=== PATIENT | female | born 1985 | race Hispanic/Latino ===

== ENCOUNTER 2023-11-22 23:40 | Emergency (ER) | payer SELFPAY ==
[2023-11-23 00:29] LABS: Bilirubin Neg (Negative); Blood, Urine 150 (Negative); Clarity Clear (Clear); Glucose, Urine (Dipstick) Normal (Negative); Ketone, Urine Negative (Negative); Leukocyte Negative (Negative); Nitrite Negative (Negative); Protein, Urine (Dipstick) Negative (Neg-Trace); Specific Gravity, Urine 1.015 (1.005-1.030); Urobilinogen Normal mg/dL (Less than 2); pH, Urine 6.5 (5.0-9.0)
[2023-11-23 00:40] LABS: #Basophils 0.04 10x3/uL (0.0-0.2); #Eosinphils 0.34 10x3/uL (0.0-0.5); #Neutrophils 6.66 10x3/uL (1.5-8.4); %Basophils 0.4 % (0.0-2.0); %Eosinophils 3.2 % (0.0-6.0); %Lymphocytes 28.8 % (18.0-47.0); %Monocytes 5.6 % (0.0-10.0); %Neutrophils 61.6 % (40.0-75.0); Hemoglobin 12.3 g/dL (12.0-15.5); Mean Corpuscular HGB CONC 33.2 g/dL (32.0-36.0); Mean Corpuscular Volume 84.3 fL (81.6-98.3); Mean Platelet Volume 9.4 fL (7.4-10.4); Platelet Count 296 10x3/uL (150-450); RBC Distribution Width 13.5 % (11.5-14.5); Red Blood Cell (RBC) Count 4.39 10x6/uL (3.90-5.03); White Blood Cell (WBC) Count 10.8 10x3/uL (3.5-10.5)
[2023-11-23 01:16] LABS: Bacteria/HPF Rare-Few HPF (None Seen); CAUTI Indications for Culture Pregnancy; RBC/HPF 0-3 HPF (0-3); Squamous Epithelial 0-3 HPF (0-3); WBC/HPF 0-3 HPF (0-3)
[2023-11-23 01:17] LABS: Urine Culture Reflex No No; Urine Culture Reflex Yes Yes
== END 2023-11-23 03:13 | disposition home or self-care (01) ==
LOC: CSHERS 23:40
DX: O20.0 Threatened abortion (principal); Z3A.01 Less than 8 weeks gestation of pregnancy
CPT/HCPCS: 36415; 76856; 81001; 84702; 85025; 86850; 86900; 86901; 87086

== ENCOUNTER 2024-02-17 10:12 | Emergency (ER) | payer MEDICAID, SELFPAY ==
[2024-02-17] MEDS ORDERED: Acetaminophen 325 MG TAB ONE (10:41)
[2024-02-17 11:03] LABS: #Basophils 0.02 10x3/uL (0.0-0.2); #Eosinophils 0.12 10x3/uL (0.0-0.5); #Monocytes 0.69 10x3/uL (0.0-1.1); #Neutrophils 5.87 10x3/uL (1.5-8.4); %Basophils 0.2 % (0.0-2.0); %Eosinophils 1.5 % (0.0-6.0); %Lymphocytes 16.3 % (18.0-47.0); %Monocytes 8.5 % (0.0-10.0); %Neutrophils 72.1 % (40.0-75.0); Hemoglobin 10.7 g/dL (12.0-15.5); Mean Corpuscular HGB CONC 32.4 g/dL (32.0-36.0); Mean Corpuscular Hemoglobin 27.1 pg (27.0-33.0); Mean Corpuscular Volume 83.5 fL (81.6-98.3); Mean Platelet Volume 9.9 fL (7.4-10.4); Platelet Count 244 10x3/uL (150-450); RBC Distribution Width 13.6 % (11.5-14.5); Red Blood Cell (RBC) Count 3.95 10x6/uL (3.90-5.03); White Blood Cell (WBC) Count 8.1 10x3/uL (3.5-10.5)
[2024-02-17 11:18] LABS: ALT (SGPT) 17 U/L (8-55); AST (SGOT) 36 U/L (5-34); Albumin 2.6 g/dL (3.5-5.0); Alkaline Phosphatase 105 U/L (40-110); Anion Gap 14 mmol/L (10-20); BUN (Urea Nitrogen) 4 mg/dL (7.0-18.7); Bilirubin, Total 0.2 mg/dL (0.2-1.2); Calc. Creatinine Clearance 0 mL/min (70-130); Calcium 8.3 mg/dL (7.8-10.44); Carbon Dioxide 21 mmol/L (22-29); Chloride 105 mmol/L (98-107); Estimated GFR 118; Globulin 3.9 g/dL (2.4-3.5); Glucose 105 mg/dL (70-105); Potassium 3.4 mmol/L (3.5-5.1); Protein, Total 6.5 g/dL (6.0-8.3); Sodium 137 mmol/L (136-145)
[2024-02-17 12:07] LABS: Bilirubin Neg (Negative); Blood, Urine Negative (Negative); Clarity Clear (Clear); Glucose, Urine (Dipstick) Normal (Negative); Ketone, Urine Negative (Negative); Leukocyte Negative (Negative); Nitrite Negative (Negative); Protein, Urine (Dipstick) 15 mg/dl (Neg-Trace); Specific Gravity, Urine 1.015 (1.005-1.030); Urobilinogen Normal mg/dL (Less than 2)
[2024-02-17 12:41] LABS: Bacteria/HPF 2+ HPF (None Seen); CAUTI Indications for Culture Pregnancy; RBC/HPF None Seen HPF (0-3); Squamous Epithelial Greater than 50 HPF (0-3); WBC/HPF 0-3 HPF (0-3)
[2024-02-17 12:43] LABS: Urine Culture Reflex Yes Yes
== END 2024-02-17 11:07 | disposition home or self-care (01) ==
LOC: CSHERS 10:12
DX: O99.891 Other specified diseases and conditions complicating pregnancy (principal); J11.1 Influenza due to unidentified influenza virus with other respiratory manifestations; Z3A.20 20 weeks gestation of pregnancy
CPT/HCPCS: 76815; 80053; 81001; 85025; 86900; 86901; 87086; 87428

== ENCOUNTER 2024-03-05 10:00 | Outpatient (CLI) | payer OTHER | END 2024-03-05 13:00 | disposition home or self-care (01) | LOC: CSHULT 10:00 | PROVIDERS: ATTEND Family Medicine | DX: O09.522 Supervision of elderly multigravida, second trimester (principal); Z3A.22 22 weeks gestation of pregnancy | CPT/HCPCS: 76805 ==

== ENCOUNTER 2024-12-08 22:57 | Emergency (ER) | payer MEDICAID, OTHER ==
[2024-12-09 00:21] LABS: #Basophils 0.04 10x3/uL (0.0-0.2); #Eosinophils 0.40 10x3/uL (0.0-0.5); #Monocytes 0.58 10x3/uL (0.0-1.1); #Neutrophils 4.15 10x3/uL (1.5-8.4); %Basophils 0.5 % (0.0-2.0); %Eosinophils 4.6 % (0.0-6.0); %Lymphocytes 39.8 % (18.0-47.0); %Monocytes 6.7 % (0.0-10.0); %Neutrophils 48.1 % (40.0-75.0); Hematocrit 37.5 % (34.9-44.5); Hemoglobin 12.0 g/dL (12.0-15.5); Mean Corpuscular Hemoglobin 25.1 pg (27.0-33.0); Mean Corpuscular Volume 78.3 fL (81.6-98.3); Platelet Count 300 10x3/uL (150-450); Red Blood Cell (RBC) Count 4.79 10x6/uL (3.90-5.03); White Blood Cell (WBC) Count 8.64 10x3/uL (3.5-10.5)
[2024-12-09 00:27] LABS: BHCG - Serum Negative (NEGATIVE); Pregs Control Background? CLEAR/WHITE (CLR/WHITE); Pregs Control Bar Appear? YES (CONTROL BAR)
[2024-12-09 00:33] LABS: ALT (SGPT) 58 U/L (Less than 34); AST (SGOT) 47 U/L (11-34); Albumin 3.8 g/dL (3.1-4.5); Alkaline Phosphatase 196 U/L (40-110); Anion Gap 14 mmol/L (10-20); BUN (Urea Nitrogen) 12 mg/dL (7.0-18.7); Bilirubin, Total 0.2 mg/dL (0.3-1.2); Calc. Creatinine Clearance 0 mL/min (70-130); Calcium 9.4 mg/dL (7.8-10.44); Carbon Dioxide 24 mmol/L (22-29); Chloride 99 mmol/L (98-107); Globulin 3.5 g/dL (2.4-3.5); Potassium 3.7 mmol/L (3.5-5.1); Sodium 133 mmol/L (136-145)
[2024-12-09 00:37] LABS: Glucose 469 mg/dL (70-105)
[2024-12-09] MEDS ORDERED: Ketorolac Tromethamine 30 MG (1 mL) VIAL ONE (01:46)
[2024-12-09 01:58] LABS: Troponin I Less than 0.010 ng/mL (< 0.028)
[2024-12-09] MEDS ORDERED: Potassium Chloride 10 MEQ in Premix 1 BAG IVPB SCH (02:00)
== END 2024-12-09 03:34 | disposition home or self-care (01) ==
LOC: CSHERS 22:57
DX: N92.0 Excessive and frequent menstruation with regular cycle (principal); E11.65 Type 2 diabetes mellitus with hyperglycemia; R07.9 Chest pain, unspecified; E86.0 Dehydration
CPT/HCPCS: 36415; 36416; 71045; 80053; 83605; 83690; 84484; 84703; 85025; 86850; 86900; 86901; 93005; 96374; 96375; J1815; J1885; J3480